=== PATIENT | female | born 1990 | race African-American/Black ===

== ENCOUNTER 2019-01-27 15:48 | Emergency (ER) | payer OTHER ==
[~2019-01-27] VITALS: Ht 160 cm; Wt 73.5 kg
[2019-01-27] MEDS ORDERED: MOBIC15 MG PO (17:13)
[2019-01-27] MEDS ORDERED: CYCLOBENZAPRINE5 MG PO (17:13)
[2019-01-27 17:40] VITALS: BP 118/64
== END 2019-01-27 17:49 | disposition home or self-care (01) ==
LOC: ER 15:48
DX: S29.012A Strain of muscle and tendon of back wall of thorax, initial encounter (principal); F17.210 Nicotine dependence, cigarettes, uncomplicated; X50.9XXA Other and unspecified overexertion or strenuous movements or postures, initial encounter; Y93.89 Activity, other specified; Y92.89 Other specified places as the place of occurrence of the external cause; Y99.8 Other external cause status